=== PATIENT | female | born 1955 | race Caucasian/White ===

== ENCOUNTER 2018-05-23 01:00 | Emergency (ER) | payer OTHER ==
[~2018-05-23] VITALS: Ht 167.6 cm; Wt 94.4 kg
[~2018-05-23 01:00] MED LIST: ALBUTEROL SULF8.5 GM IH; CIPRO500 MG PO; CLINDAMYCIN HC300 MG PO; CYCLOBENZAPRINE10 MG PO; DILAUDID2 MG PO; DULERA 100 MCG/13 GM IH; HYDROCODON-ACE1 EAC7 PO; NORCO 5/3251 TABLET PO; NORCO 7.5/321 TABLET PO; OMEPRAZOLE20 MG PO; PREDNISONE20 MG PO; ULTRAM50 MG PO; VIBRAMYCIN100 MG PO; ZAFIRLUKAST20 M1 PO
[2018-05-23 03:22] LABS: HEMATOCRIT 38.1 % (36.0-46.0); HEMOGLOBIN 13.2 G/DL (11.9-15.5); MCH 30.6 PG (29.0-34.0); MCHC 34.6 G/DL (30.0-36.0); MCV 88.4 FL (83-99); PLATELET COUNT 206 K/uL (156-360); RBC DIS.WIDTH-CV 12.9 % (11.8-14.6); RBC DIS.WIDTH-SD 42.4 % (39-53); RED BLOOD COUNT 4.31 M/uL (3.80-5.20); WHITE BLOOD COUNT 4.1 K/uL (4.1-10.2)
[2018-05-23 03:46] LABS: ALBUMIN 3.9 g/dL (3.2-4.8); CHLORIDE 108 mEq/L (99-109); SODIUM 141 mEq/L (136-147)
[2018-05-23 03:48] LABS: GLUCOSE 112 mg/dL (70-99); TOTAL PROTEIN 6.7 g/dL (6.4-8.3)
[2018-05-23 03:50] LABS: TOTAL BILIRUBIN 0.8 mg/dL (0.0-1.0)
[2018-05-23 03:52] LABS: ALKALINE PHOSPHATASE 132 IU/L (3-129); CREATININE 1.1 mg/dL (0.6-1.3); GFR ESTIMATE (CALCULATED) 54 mL/min/
[2018-05-23 03:53] LABS: UREA NITROGEN (BUN) 20 mg/dL (9-23)
[2018-05-23 03:54] LABS: AST (GOT) 17 IU/L (2-34)
[2018-05-23 03:55] LABS: ALT (GPT) 20 IU/L (3-49)
[2018-05-23] MEDS ORDERED: NYSTATIN-TRIAMC15 GM TP (04:30)
[2018-05-23] MEDS ORDERED: KEFLEX500 MG PO (04:30)
[2018-05-23] MEDS ORDERED: ATARAX,VISTARIL50 MG PO (04:31)
[2018-05-23 05:09] VITALS: BP 158/74
== END 2018-05-23 05:10 | disposition home or self-care (01) ==
LOC: EME 01:00
PROVIDERS: Physician Assistant
DX: L03.116 Cellulitis of left lower limb (principal); L03.115 Cellulitis of right lower limb; M79.89 Other specified soft tissue disorders; R60.0 Localized edema; B20 Human immunodeficiency virus [HIV] disease; J44.9 Chronic obstructive pulmonary disease, unspecified; Z90.710 Acquired absence of both cervix and uterus; Z86.718 Personal history of other venous thrombosis and embolism; Z85.72 Personal history of non-Hodgkin lymphomas; Z87.891 Personal history of nicotine dependence
CPT/HCPCS: 80053; 85027; 93970; 99281; 99284; Q0177